=== PATIENT | male | born 1965 | race Caucasian/White ===

== ENCOUNTER 2024-08-13 15:43 | Emergency (ER) | payer SELFPAY ==
[~2024-08-13] VITALS: Ht 180.3 cm; Wt 109.9 kg
[2024-08-13] MEDS: Surgicel PA 2X3 INCH TOP ONE (16:30)
[2024-08-13] MEDS: NEOMYCIN-BACITRACIN-POLYM UNITDOSE PKG TOP OINT TOP ONE (16:30)
[2024-08-13] MEDS: KETOROLAC TROMETH 60MG/2ML VIAL IM ONE (16:30)
[2024-08-13] MEDS ORDERED: HYDR-4902 PO (16:35)
[2024-08-13] MEDS ORDERED: BACIOIN15 TOP (16:35)
[2024-08-13] MEDS ORDERED: IBUP-1455 PO (16:35)
[2024-08-13] MEDS ORDERED: [UNRECOGNIZED DRUG - CODE] EX (16:35)
--- NOTE | 2024-08-13 16:36 | ED.PDOC ---
HPI Comments This patient is a 59-year-old morbidly obese male who arrives the ED today for evaluation of left index finger laceration sustained approximately 1 hour prior to arrival. Patient states he was cutting meat when he cut his left index finger. Injury is a complete avulsion tissue injury and there is no remaining tissue in the area. Bleeding was controlled at arrival. Patient states tetanus is up-to-date. Chief Complaint: Laceration Time Seen by MD: 15:51 Primary Care Provider: TALA Reviewed Notes: Nurses Notes Allergies: Coded Allergies: NO KNOWN ALLERGIES (Unverified , 08/13/24) Information Source: Patient Mode of Arrival: Ambulatory Severity: Moderate Severity of Laceration: Controlled Bleeding Complexity: Intermediate Timing: Minutes Prehospital treatment: None Laceration Location: Digit #2 Mechanism: Knife Last Tetanus: UTD Laceration Length (cm): 3 Skin Type: Avulsion Depth of Injury: Skin Tendon Injury: 0% Capillary Refill: < 3 seconds Tender: Moderate Discharge: Bloody Past Medical History PAST MEDICAL HISTORY: Denies Surgical History: Denies all surgeries Family History Family History: Reviewed,noncontributory to illness, No family hx of Cancer, No family hx of DM, No family hx of Heart delmy, No family hx of HTN, No family hx ofKidney delmy, No family hx of Liver delmy, No family hx of Lung delmy, No family hx of Stroke Social History Smoker: Non-Smoker Alcohol: Denies ETOH Use Drugs: Denies Drug Use Lives In: Home Constitutional: denies: chills, diaphoresis, fatigue, fever, malaise, sweats, weakness, others EENTM: denies: blurred vision, double vision, ear bleeding, ear discharge, ear drainage, ear pain, ear ringing, eye pain, eye redness, hearing loss, mouth pain, mouth swelling, nasal discharge, nose bleeding, nose congestion, nose pain, photophobia, tearing, throat pain, throat swelling, voice changes, others Respiratory: denies: cough, hemoptysis, orthopnea, SOB at rest, shortness of breath, SOB with excertion, stridor, wheezing, others Cardiovascular: denies: chest pain, dizzy spells, diaphoresis, Dyspnea on exertion, edema, irregular heart beat, left arm pain, lightheadedness, palpitations, PND, syncope, others Gastrointestinal: denies: abdomen distended, abdominal pain, blood streaked bowels, constipated, diarrhea, dysphagia, difficulty swallowing, hematemesis, melena, nausea, poor appetite, poor fluid intake, rectal bleeding, rectal pain, vomiting, others Genitourinary: denies: burning, dysuria, flank pain, frequency, hematuria, incontinence, penile discharge, penile sore, pain, testicle pain, testicle swelling, urgency, others Neurological: denies: dizziness, fainting, headache, left sided numbness, left sided weakness, numbness, paresthesia, pre-existing deficit, right sided numbness, right sided weakness, seizure, speech problems, tingling, tremors, weakness, others Musculoskeletal: denies: back pain, gout, joint pain, joint swelling, muscle pain, muscle stiffness, neck pain, others Integumetry: reports: laceration (Left index finger); denies: bruises, change in color, change in hair/nails, dryness, lesions, lumps, rash, wounds, others Allergic/Immunocompromised: denies: Difficulty Healing, Frequent Infections, Hives, Itching, others Hematologic/Lymphatic: denies: anemia, blood clots, easy bleeding, easy bruising, swollen glands, others Endocrine: denies: excessive hunger, excessive sweating, excessive thirst, excessive urination, flushing, intolerance to cold, intolerance to heat, unexplained weight gain, unexplained weight loss, others Psychiatric: denies: anxiety, bipolar disorder, depression, hopeless, panic disorder, schizophrenia, sleepless, suicidal, others Physical Exam General Appearance: Moderate Distress ( due to left index finger pain), Normal HEENT: Normal ENT Inspection, Pharynx Normal, TMs Normal Neck: Full Range of Motion, Non-Tender, Normal, Normal Inspection Respiratory: Chest Non-Tender, Lungs Clear, No Accessory Muscle Use, No Respiratory Distress, Normal Breath Sounds Cardiovascular: No Edema, No JVD, No Murmur, No Gallop, Normal Peripheral Pulses, Regular Rate/Rhythm Breast Exam: Deferred Gastrointestinal: No Organomegaly, Non Tender, No Pulsatile Mass, Normal Bowel Sounds, Soft Genitalia: Deferred Pelvic: Deferred Rectal: Deferred Extremities: Other ( patient displays a 3 cm complete avulsion to the tissue on the lateral aspect of his distal left index finger. Bleeding is controlled. No tendon or ligament involvement. No muscle involvement.) Neurologic: Alert, No Motor Deficits, Normal Affect, Normal Mood, No Sensory Deficits Cerebellar Function: Normal Reflexes: Normal Skin: Dry, Lacerations ( See extremities for lac description), Normal Color, Warm Lymphatic: No Adenopathy Was a procedure done? Was a procedure done?: No Differential diagnosis Generic Laceration: Other ( avulsion laceration) X-Ray, Labs, Meds, VS Vital Signs Date Time Temp Pulse Resp B/P (MAP) Pulse Ox O2 Delivery O2 Flow Rate FiO2 08/13/24 16:03 97.8 96 15 157/87 (110) 98 X-Ray, Labs, Meds, VS Comment Advised patient that there was no repairs to be done today as there was no remaining tissue. Advised patient to utilize the SurgiSeal and topical antibiotics as well as oral antibiotics and cleaned daily dressing changes. Time of 1ST Reevaluation: 16:32 Reevaluation 1ST: Improved Consultation: PCP Patient Education/Counseling: Diagnosis, Treatment Family Education/Counseling: Diagnosis, Treatment Departure 1 Departure Time of Disposition: 16:32 Impression: Primary Impression: Finger laceration Disposition: HOME / SELF CARE / HOMELESS Condition: Stable Additional Instructions: Advise utilizing antibiotics as directed until completion as well as daily dressing changes with topical antibiotics and Surgicel. e-Prescriptions Bacitracin Base (Bacitracin) 500 Unit/Gm Oin 500 UNIT TOP DAILY, #30 GM Prov: OMERO [facility]GER [facility] 08/13/24 Microfibrillar Collagen Hemost (Surgicel Fibrillar Absorb) 4 " Pad 4 " EX DAILY, #20 PAD Prov: OMERO [facility]GER [facility] 08/13/24 Hydrocodone-Acetaminophen (Hydrocodone Bitartrate/AC 5-325 mg) 1 Tab Tab 1 TAB PO Q6HP PRN, #15 TAB Prov: OMERO [facility]GER [facility] 08/13/24 Ibuprofen Micronized (Ibuprofen) 800 Mg Tab 800 MG PO Q8HP PRN, #20 TAB Prov: OMERO [facility] 08/13/24 Discharged With: Self, Friend Critical Care Note Critical Care Time?: No Stability Stability form required: No Heart Score Heart Score: Heart Score Response (Comments) Value History N/A 0 EKG N/A 0 Age N/A 0 Risk Factors N/A 0 Troponin N/A 0 Total 0 OMERO LEGER [facility] Aug 13, 2024 16:36
[2024-08-13 18:00] VITALS: BP 154/83; PULSE 84; RESP 18; TEMP 97.8; O2SAT 95
[2024-08-13] MEDS: HYDROcodone-ACET 10/325MG TAB PO ONE (18:00)
== END 2024-08-13 18:15 | disposition home or self-care (01) ==
LOC: ER 15:43
DX: S61.211A Laceration without foreign body of left index finger without damage to nail, initial encounter (principal); E66.01 Morbid (severe) obesity due to excess calories; W26.8XXA Contact with other sharp object(s), not elsewhere classified, initial encounter; Y93.89 Activity, other specified; Y92.89 Other specified places as the place of occurrence of the external cause; Y99.8 Other external cause status
CPT/HCPCS: J1885